=== PATIENT | female | born 2000 | race African-American/Black ===

== ENCOUNTER 2023-01-08 15:08 | Inpatient (IN) ==
[2023-01-08] MEDS ORDERED: CARBOPROST TROMETHAMINE 250 MCG/ML AMP IM PRN (15:21)
[2023-01-08] MEDS ORDERED: MEPERIDINE 25 MG/1 ML VIAL IV PRN (15:21)
[2023-01-08] MEDS ORDERED: METHYLERGONOVINE 0.2 MG/1 ML AMP IM PRN (15:21)
[2023-01-08] MEDS ORDERED: ONDANSETRON 4 MG/2 ML VIAL IV PRN (15:21)
[2023-01-08] MEDS ORDERED: miSOPROStoL 200 MCG TABLET RECTAL PRN (15:21)
[2023-01-08] MEDS ORDERED: MEPERIDINE 50 MG/1 ML VIAL IV PRN (15:21)
[2023-01-08] MEDS ORDERED: TRANEXAMIC ACID 1,000 MG in SODIUM CHLORIDE 0.9% 100 ML IV PRN (15:21)
[2023-01-08] MEDS ORDERED: OXYTOCIN/LR 20 UNIT/1,000 ML BAG IV ONE (15:21)
[2023-01-08 16:02] LABS: Basophils % 0.2 % (0.0-0.8); Eosinophils # 0.1 10*3/uL (0.0-0.87); Eosinophils % 0.7 % (0.00-10.9); Hematocrit 30.2 VOL% (35.7-47.0); Hemoglobin 9.4 GM/DL (12.0-16.0); Immature Granulocytes % 1.6 %; Immature Granulocytes Absolute 0.18 #; Lymphocytes # 2.2 10*3/uL (1.4-4.0); Lymphocytes % 20.2 % (21.3-54.2); Mean Corpuscular HGB Conc 31.1 GM/DL (32-36); Mean Corpuscular Volume 87.5 FL (87-102); Mean Platelet Volume 10.6 FL (9.6-12.0); Monocytes # 0.6 10*3/uL (0.11-0.8); Monocytes % 5.7 % (1.7-12.7); NRBC # 0.05 10*3/uL; Neutrophils % 71.6 % (38.7-73.9); Platelet Count 175 T/CUMM (130-400); Red Blood Count 3.45 MC/CUMM (3.8-5.5); Red Cell Distribution Width 14.9 % (9.3-17.3); White Blood Count 11.08 T/CUMM (4-12)
[2023-01-08 16:26] LABS: Albumin 2.9 G/DL (3.4-5.0); Bilirubin,Total 0.4 MG/DL (0.20-1.00); Calcium 9.2 MG/DL (8.5-10.1); Osmolality,Calculated 272.5 MOS/KG (273-304); Potassium 3.7 MMOL/L (3.5-5.1); Total Protein 7.5 G/DL (6.4-8.2)
[2023-01-08] MEDS: LACTATED RINGERS 1,000 ML IV SCH (18:48)
[2023-01-08] MEDS ORDERED: FERROUS SULFATE 325 MG TABLET PO SCH (21:00)
[2023-01-08] MEDS: AMPICILLIN INJ 2,000 MG in SODIUM CHLORIDE 0.9% 100 ML IV SCH (21:03)
[2023-01-08] MEDS: levETIRAcetam 500 MG TABLET PO SCH (22:49)
[2023-01-09] MEDS: AMPICILLIN INJ 2,000 MG in SODIUM CHLORIDE 0.9% 100 ML IV SCH (03:38)
[2023-01-09] MEDS ORDERED: TRANEXAMIC ACID 1,000 MG in SODIUM CHLORIDE 0.9% 100 ML IV PRN (05:21)
[2023-01-09] MEDS ORDERED: OXYTOCIN/LR 20 UNIT/1,000 ML BAG IV ONE ×2 (05:21→12:07)
[2023-01-09] MEDS ORDERED: miSOPROStoL 200 MCG TABLET RECTAL PRN (05:21)
[2023-01-09] MEDS ORDERED: CARBOPROST TROMETHAMINE 250 MCG/ML AMP IM PRN (05:21)
[2023-01-09] MEDS ORDERED: METHYLERGONOVINE 0.2 MG/1 ML AMP IM PRN (05:21)
[2023-01-09] MEDS ORDERED: levETIRAcetam 500 MG TABLET PO ONE (07:25)
[2023-01-09] MEDS ORDERED: FAMOTIDINE 20 MG/2 ML VIAL IV ONE (08:00)
[2023-01-09] MEDS ORDERED: OXYTOCIN/LR 30 UNIT/1,000 ML BAG IV ONE (08:00)
[2023-01-09] MEDS ORDERED: CITRIC ACID/SODIUM CITRATE 30 ML UDCUP PO ONE (08:00)
[2023-01-09] MEDS ORDERED: OXYTOCIN 10 UNIT/ML VIAL IM ONE (08:00)
[2023-01-09] MEDS ORDERED: ceFAZolin 2,000 MG/50 ML DUPLEX IV ONE (08:00)
[2023-01-09 08:50] LABS: Hepatitis B Surface Ag Quant < 0.10 Index; Hepatitis B Surface Ag Result Non-Reactive (NonReactive)
[2023-01-09 09:04] LABS: HIV Antigen/Antibody Result Nonreactive (Nonreactive); Rubella Antibody IgG Result Reactive (NonReactive)
[2023-01-09] MEDS ORDERED: METHYLERGONOVINE 0.2 MG/1 ML AMP ONE (09:22)
[2023-01-09] MEDS ORDERED: miSOPROStoL 200 MCG TABLET ONE (09:22)
[2023-01-09] MEDS ORDERED: CARBOPROST TROMETHAMINE 250 MCG/ML AMP IM ONE (09:23)
[2023-01-09] MEDS: LACTATED RINGERS 1,000 ML IV SCH (10:02)
[2023-01-09] MEDS ORDERED: buprenorphine HCL 0.3 MG/ML VIAL ONE (10:55)
[2023-01-09] MEDS ORDERED: ONDANSETRON 4 MG/2 ML VIAL ONE (10:55)
[2023-01-09] MEDS ORDERED: KETOROLAC 30 MG/1 ML VIAL ONE (11:00)
[2023-01-09] MEDS ORDERED: ACETAMINOPHEN INJ 1,000 MG/100 ML VIAL IV ONE (11:00)
[2023-01-09] MEDS ORDERED: MIDAZOLAM 2 MG/2 ML VIAL ONE (11:01)
[2023-01-09] MEDS ORDERED: DEXAMETHASONE 4 MG/1 ML VIAL ONE ×2 (11:01)
[2023-01-09] MEDS ORDERED: PHENYLEPHRINE 1 MG/10 ML SYRINGE IV ONE ×2 (11:31→11:54)
[2023-01-09] MEDS ORDERED: LACTATED RINGERS 1,000 ML IV ONE (11:38)
[2023-01-09 12:01] LABS: Cord Venous Blood HCO3 22.3 MMOL/L; Cord Venous Blood PCO2 46.4 MMHG; Cord Venous Blood PO2 35.3
[2023-01-09] MEDS ORDERED: ONDANSETRON 4 MG/2 ML VIAL IV PRN (12:07)
[2023-01-09] MEDS ORDERED: ACETAMINOPHEN 325 MG TABLET PO PRN (12:07)
[2023-01-09] MEDS ORDERED: RHO(D) IMMUNE GLOBULIN 300 MCG SYRINGE IM ONE (12:07)
[2023-01-09] MEDS ORDERED: SIMETHICONE CHEW 80 MG TABLET PO PRN (12:07)
[2023-01-09 12:08] LABS: Mucus,Urine Occasional /LPF (Occasional); RBC,Urine 1 /HPF (0-4); Squamous Epithelial Cell,Urine Occasional /HPF (0-10)
[2023-01-09 12:09] LABS: Bilirubin,Urine Negative (Negative); Blood, Urine Negative (Negative); Glucose,Urine (UA) Negative (Negative); Ketones,Urine 15 mg/dL (Negative); Nitrite,Urine Negative (Negative); Protein,Urine Negative (Negative); Urine Appearance Clear (Clear); Urine Color Yellow (Yellow); Urine Specific Gravity 1.015 (1.001-1.035); Urine Urobilinogen 0.2 eU/dL (<2.0)
[2023-01-09] MEDS ORDERED: LACTATED RINGERS 1,000 ML IV SCH (12:30)
[2023-01-09] MEDS: levETIRAcetam 500 MG TABLET PO SCH ×2 (13:20→20:59)
[2023-01-09] MEDS ORDERED: oxyCODONE/ACETAMINOPHEN 5-325 MG TABLET PO PRN (15:34)
[2023-01-09] MEDS: oxyCODONE/ACETAMINOPHEN 5-325 MG TABLET PO PRN ×2 (15:57→22:39)
[2023-01-09] MEDS: KETOROLAC 30 MG/1 ML VIAL IV SCH (18:28)
[2023-01-09 20:15] LABS: Basophils % 0.2 % (0.0-0.8); Hematocrit 25.2 VOL% (35.7-47.0); Immature Granulocytes % 1.3 %; Immature Granulocytes Absolute 0.16 #; Lymphocytes # 1.3 10*3/uL (1.4-4.0); Lymphocytes % 9.9 % (21.3-54.2); Mean Corpuscular HGB Conc 31.7 GM/DL (32-36); Mean Corpuscular Volume 86.9 FL (87-102); Mean Platelet Volume 10.7 FL (9.6-12.0); Monocytes # 0.2 10*3/uL (0.11-0.8); Monocytes % 1.4 % (1.7-12.7); NRBC # 0.03 10*3/uL; Neutrophils % 87.2 % (38.7-73.9); Platelet Count 171 T/CUMM (130-400); Red Cell Distribution Width 14.8 % (9.3-17.3); White Blood Count 12.78 T/CUMM (4-12)
[2023-01-09] MEDS: DOCUSATE SODIUM 100 MG CAPSULE PO SCH (20:59)
[2023-01-10] MEDS: ACETAMINOPHEN 500 MG TABLET PO SCH ×2 (00:01→06:29)
[2023-01-10] MEDS: KETOROLAC 30 MG/1 ML VIAL IV SCH ×2 (00:04→06:15)
[2023-01-10 04:46] LABS: Basophils % 0.1 % (0.0-0.8); Hematocrit 25.2 VOL% (35.7-47.0); Hemoglobin 8.2 GM/DL (12.0-16.0); Immature Granulocytes % 1.1 %; Immature Granulocytes Absolute 0.18 #; Lymphocytes # 2.1 10*3/uL (1.4-4.0); Lymphocytes % 12.5 % (21.3-54.2); Mean Corpuscular HGB Conc 32.5 GM/DL (32-36); Mean Corpuscular Volume 85.7 FL (87-102); Mean Platelet Volume 10.5 FL (9.6-12.0); Monocytes % 5.7 % (1.7-12.7); NRBC # 0.04 10*3/uL; Neutrophils % 80.6 % (38.7-73.9); Platelet Count 196 T/CUMM (130-400); Red Blood Count 2.94 MC/CUMM (3.8-5.5); Red Cell Distribution Width 14.8 % (9.3-17.3); White Blood Count 16.61 T/CUMM (4-12)
[2023-01-10] MEDS: MULTIVITAMIN (PRENATAL) TABLET PO SCH (10:44)
[2023-01-10] MEDS: DOCUSATE SODIUM 100 MG CAPSULE PO SCH ×2 (10:44→21:22)
[2023-01-10] MEDS: IBUPROFEN 800 MG TABLET PO PRN (10:46)
[2023-01-10] MEDS: oxyCODONE/ACETAMINOPHEN 5-325 MG TABLET PO PRN ×3 (10:49→21:45)
[2023-01-10] MEDS: levETIRAcetam 500 MG TABLET PO SCH ×2 (10:52→21:22)
[2023-01-10] MEDS ORDERED: RHO(D) IMMUNE GLOBULIN 300 MCG SYRINGE IM ONE (18:04)
[2023-01-10] MEDS ORDERED: IRON (CARBONYL)/VIT C/B12/FA TABLET PO ONE (21:02)
[2023-01-10] MEDS: MAGNESIUM HYDROXIDE SUSP 30 ML UDCUP PO PRN (22:45)
[2023-01-11] MEDS: oxyCODONE/ACETAMINOPHEN 5-325 MG TABLET PO PRN (06:17)
[2023-01-11 07:47] VITALS: BP 109/63
[2023-01-11] MEDS: MAGNESIUM HYDROXIDE SUSP 30 ML UDCUP PO PRN (08:40)
[2023-01-11] MEDS: levETIRAcetam 500 MG TABLET PO SCH (08:40)
[2023-01-11] MEDS: MULTIVITAMIN (PRENATAL) TABLET PO SCH (08:40)
[2023-01-11] MEDS: DOCUSATE SODIUM 100 MG CAPSULE PO SCH (08:40)
[2023-01-11] MEDS: IBUPROFEN 800 MG TABLET PO PRN (08:41)
[2023-01-11] MEDS ORDERED: IRON (CARBONYL)/VIT C/B12/FA TABLET PO SCH (09:00)
== END 2023-01-11 13:10 | disposition home or self-care (01) | DRG 540 ==
LOC: N.LD 15:08 → N.LDOUT 15:08 → N.LD 15:10 → N.OB 01-09 15:24
PROVIDERS: ADMIT Obstetrics & Gynecology; ATTEND Obstetrics & Gynecology
PROC: LDCSECT (ICD-10-PCS; 2023-01-09 10:30)